=== PATIENT | female | born 1970 | race Hispanic/Latino ===

== ENCOUNTER 2019-05-05 15:31 | Emergency (ER) | payer SELFPAY ==
--- NOTE | 2019-05-05 16:06 | RAD ---
PA CHEST: Date: 05/05/19 HISTORY: Chest pain. FINDINGS: Lungs are clear. Heart and mediastinum appear normal. Vasculature normal. IMPRESSION: Negative 1 view chest. POS: [facility]
[2019-05-05 16:11] LABS: #Lymphocytes 1.6 thou/uL (1.20-3.40); #Monocytes 0.4 thou/uL (0.11-0.59); #Neutrophils 3.4 thou/uL (1.40-6.50); %Basophils 0.3 % (0.0-1.0); %Eosinophils 0.6 % (0.0-10.0); %Lymphocytes 29.2 % (21.0-51.0); %Monocytes 7.6 % (0.0-10.0); %Neutrophils 62.3 % (42.0-75.0); Hemoglobin 12.5 g/dL (12.0-16.0); Mean Corpuscular HGB CONC 33.4 g/dL (32.0-36.0); Mean Corpuscular Hemoglobin 26.2 pg (27.0-31.0); Mean Corpuscular Volume 78.5 fL (78.0-98.0); Mean Platelet Volume 8.7 fL (7.4-10.4); Platelet Count 257 thou/uL (130-400); RBC Distribution Width 18.3 % (11.5-14.5); Red Blood Cell (RBC) Count 4.75 mill/uL (4.20-5.40); White Blood Cell (WBC) Count 5.4 thou/uL (4.8-10.8)
[2019-05-05 16:33] LABS: ALT (SGPT) 16 U/L (8-55); AST (SGOT) 18 U/L (5-34); Albumin 4.5 g/dL (3.5-5.0); Alkaline Phosphatase 104 U/L (40-110); Anion Gap 15 mmol/L (10-20); BUN (Urea Nitrogen) 8 mg/dL (7.0-18.7); Bilirubin, Total 0.6 mg/dL (0.2-1.2); CK (CPK) 74 U/L (29-168); Calc. Creatinine Clearance 0 mL/min (70-130); Calcium 9.2 mg/dL (7.8-10.44); Carbon Dioxide 25 mmol/L (22-29); Chloride 103 mmol/L (98-107); Estimated GFR-MDRD 85; Globulin 3.4 g/dL (2.4-3.5); Glucose 98 mg/dL (70-105); Lipase 9 U/L (8-78); Potassium 3.5 mmol/L (3.5-5.1); Protein, Total 7.9 g/dL (6.0-8.3); Sodium 139 mmol/L (136-145)
[2019-05-05] MEDS ORDERED: Morphine 4 MG/ML VIAL ONE (16:48)
[2019-05-05] MEDS ORDERED: Ondansetron PF 4 MG/2 ML Vial ONE (16:48)
[2019-05-05] MEDS ORDERED: Pantoprazole 40 MG VIAL ONE (16:48)
--- NOTE | 2019-05-05 17:54 | ULT ---
Exam: Right upper quadrant ultrasound: HISTORY: Nausea and epigastric pain COMPARISON: None FINDINGS: Liver: The upper limits of normal in size measuring 17.5 cm in craniocaudal dimensions. Gallbladder: No evidence of gallbladder calculi, gallbladder wall thickening, or pericholecystic flui d. Common bile duct: The common duct is normal in caliber measuring 3 mm in diameter. Pancreas: Limited visualized portions of the pancreas demonstrate a normal sonographic appearance. Right kidney: Right kidney demonstrates a normal sonographic appearance. The right kidney measures 1 0.2 cm in length. IVC: The visualized IVC demonstrates a normal sonographic appearance. IMPRESSION: No gallbladder calculi are seen, and the common duct is normal in caliber. Liver is at the upper limits of normal in size.
[2019-05-05] MEDS ORDERED: Mag-Al 1200 mg/1200 mg/30 ML UDCUP ONE (18:13)
[2019-05-05] MEDS ORDERED: Lidocaine Viscous Sol 2% 15 ml UD Cup ONE (18:13)
== END 2019-05-05 19:08 | disposition home or self-care (01) ==
LOC: ERS 15:31
DX: K29.00 Acute gastritis without bleeding (principal)
CPT/HCPCS: 36415; 71045; 76705; 80053; 82550; 83690; 84484; 85025; 93005; 96374; 96375; C9113; J2270; J2405